=== PATIENT | female | born 1995 | race Caucasian/White ===

== ENCOUNTER 2017-01-05 03:43 | Observation (INO) | payer BC, OTHER ==
[2017-01-05] MEDS ORDERED: MAG HYDROX/AL HYDROX/SIMETH 30 ML CUP ONE (04:44)
[2017-01-05] MEDS ORDERED: LIDOCAINE VISCOUS 300 MG/15 ML CUP ONE (04:44)
[2017-01-05] MEDS ORDERED: ONDANSETRON 4 MG/2 ML VIAL ONE (04:44)
[2017-01-05] MEDS ORDERED: FAMOTIDINE 20 MG/2 ML VIAL ONE (04:44)
[2017-01-05 07:27] LABS: Basophils % (A) 0 %; CH 30.6; CHCM 33.5; Eosinophils # (A) 0.1 k/uL (0-0.7); Eosinophils % (A) 1 %; HCT 41.1 % (34.0-46.0); HDW 2.51; HGB 13.7 gm/dL (11.4-16.0); Luc # (Auto) 0.05; Luc % (Auto) 0; Lymphocytes # (A) 0.9 k/uL (1.0-4.8); Lymphocytes % (A) 6 %; MCH 30.5 pg (25.0-35.0); MCHC 33.3 g/dL (31.0-37.0); MCV 91.5 fL (80.0-100.0); Mean Platelet Volume 6.5; Monocytes # (A) 0.3 k/uL (0-1.0); Monocytes % (A) 2 %; Neutrophils # (A) 13.6 k/uL (1.3-7.7); Neutrophils % (A) 91 %; RBC 4.49 m/uL (3.80-5.40); RDW 12.9 % (11.5-15.5); WBC 14.9 k/uL (3.8-10.6); WBC (Perox) 15.05
[2017-01-05 07:32] LABS: Appearance,Urine Clear (Clear); Bilirubin,Urine Negative (Negative); Calcium Oxalate Crystals,Urine Occasional /hpf; Glucose,Urine (UA) 2+ (Negative); Ketones,Urine Negative (Negative); Leukocyte Esterase,Urine Negative (Negative); Mucus,Urine Many /hpf; Nitrite,Urine Negative (Negative); Particle Count 11837; Protein,Urine 1+ (Negative); RBC,Urine 2 /hpf (0-5); Specific Gravity,Urine 1.006 (1.001-1.035); Squamous Epithelial Cell,Urine 2 /hpf (0-4); UA Billing (MACRO vs. MICRO) MICRO; Urobilinogen,Urine <2.0 mg/dL (<2.0); WBC,Urine 8 /hpf (0-5)
[2017-01-05 07:38] LABS: ALT 26 U/L (9-52); AST 28 U/L (14-36); Alkaline Phosphatase 80 U/L (38-126); Amylase 79 U/L (30-110); Anion Gap 13 mmol/L; Blood Urea Nitrogen 7 mg/dL (7-17); Calcium 9.8 mg/dL (8.4-10.2); Carbon Dioxide 25 mmol/L (22-30); Chloride 104 mmol/L (98-107); Glucose 95 mg/dL (74-99); Non-African American GFR(MDRD) >60 (>60 ml/min/1.73 sqM); Potassium 3.8 mmol/L (3.5-5.1); Sodium 142 mmol/L (137-145); Total Bilirubin 0.4 mg/dL (0.2-1.3); Total Protein 7.8 g/dL (6.3-8.2)
--- NOTE | 2017-01-05 07:53 | XR ---
EXAMINATION TYPE: XR chest 2V DATE OF EXAM: 01/05/2017 7:07 AM COMPARISON: 09/08/2004 INDICATION: Cough TECHNIQUE: Chest is examined in the frontal and lateral projections. FINDINGS: The heart size is normal. The pulmonary vasculature is normal. The lungs are clear. IMPRESSION: 1. No acute pulmonary process.
[2017-01-05] MEDS ORDERED: [UNRECOGNIZED DRUG - OTHER] PO ONE ×2 (08:00)
[2017-01-05] MEDS ORDERED: MAG HYDROX PO ONE ×2 (08:00)
[2017-01-05] MEDS ORDERED: AL HYDROX PO ONE ×2 (08:00)
[2017-01-05] MEDS ORDERED: MORPHINE SULFATE 4 MG/ML SYRINGE IV ONE (08:00)
[2017-01-05] MEDS ORDERED: FAMOTIDINE 20 MG/2 ML VIAL IV ONE (08:00)
[2017-01-05] MEDS ORDERED: ONDANSETRON 4 MG/2 ML VIAL IVP ONE (08:00)
[2017-01-05] MEDS ORDERED: ONDANSETRON 4 MG/2 ML VIAL IVP PRN (10:04)
[2017-01-05] MEDS ORDERED: RX INFO: IV CONTRAST WAS GIVEN 1 EACH MISC MISCELLANE PRN (10:13)
[2017-01-05] MEDS: IOHEXOL 350 MG/ML 25 ML BOTTLE (ORAL USE) PO PRN ×2 (10:46→11:39)
--- NOTE | 2017-01-05 10:58 | US ---
EXAMINATION TYPE: US abdomen limited DATE OF EXAM: 01/05/2017 7:13 AM COMPARISON: CLINICAL HISTORY: Abdominal pain. RUQ pain EXAM MEASUREMENTS: Liver Length: 15.8 cm Gallbladder Wall: 0.2 cm CBD: 0.5 cm Right Kidney: 10.7 x 3.4 x 3.9 cm Pancreas: Head and body are normal. Tail is obscured by bowel gas. Liver: wnl Gallbladder: wnl CBD: wnl Right Kidney: wnl No abnormality visualized within RUQ IMPRESSION: 1. Normal right upper quadrant ultrasound.
--- NOTE | 2017-01-05 12:31 | CT ---
EXAMINATION TYPE: CT abdomen pelvis w con DATE OF EXAM: 01/05/2017 12:26 PM COMPARISON: NONE HISTORY: RLQ pain CT DLP: 451.00 mGycm CONTRAST: CT scan of the abdomen and pelvis is performed with Oral Contrast and with IV Contrast, patient injec agus with 100 ml mL of Omnipaque 300. FINDINGS: LUNG BASES-: No visible nodule. No infiltrate. LIVER/GB: No calcified gallstones. No space occupying hepatic lesion. Biliary tree is of normal ca liber. PANCREAS: No inflammation. No distinct mass. SPLEEN: No splenic enlargement. No lesion seen. ADRENALS: No nodule. No thickening. KIDNEYS/BLADDER: No hydronephrosis. No nephrolithiasis. No disctinct renal mass. Urinary bladder g rossly unremarkable. BOWEL: Normal appendix. Normal bowel caliber. No inflammation. GENITAL ORGANS: No gross abnormality. LYMPH NODES: No greater than 1cm abdominal or pelvic lymph nodes are appreciated. AORTA: No significant abnormality. OSSEOUS STRUCTURES: No significant abnormality is seen. OTHER: No significant additional abnormality is seen. IMPRESSION: 1. No acute process seen. Normal appendix.
--- NOTE | 2017-01-05 13:35 | P.HPIM ---
History of Present Illness H&P Date: 01/05/17 Chief Complaint: Abdominal pain. This is a 21-year-old female with no previous medical history who was brought into the emergency department at [facility] yesterday because of abdominal pain located in the admitted abdominal area associated with the nausea and episode of vomiting that any fever or chills patient stated that she had an episode of upper respiratory tract infection that was few days back and she went to [facility] the patient on Mucinex 600 mg orally twice every day patient has been coughing with some clear phlegm without any evidence of any fever or chills at that time. The patient woke up at around 3:00 in the morning septic complaining of severe abdominal pain located in the mid abdomen and radiating to the epigastric area and subsequently located in the right upper quadrant and right lower quadrant patient ended up coming to the ER she was given IV fluid as well as Zofran and she was given morphine, patient had an ultrasound of the gallbladder that was negative for cholelithiasis she had an abdominal x-ray that was negative, patient was admitted to the hospital for evaluation she was placed on Pepcid 20 mg IV push every 12 hours along with IV fluid and Zofran patient is feeling a bit better now however she has severe tenderness in the right lower quadrant for which she underwent computed tomography scan of the abdomen and pelvis with contrast that was negative for appendicitis. General surgery consultation was obtained from Dr. Mtz. Review of Systems Constitutional: Denies chills, Denies chronic headaches, Denies lethargy, Denies malaise, Denies weakness, Denies weight gain, Denies weight loss Eyes: denies blurred vision, denies bulging eye, denies decreased vision Ears, nose, mouth and throat: Denies dental pain, Denies neck lump, Denies swelling in throat, Denies sore throat Cardiovascular: Denies chest pain, Denies decreased exercise tolerance, Denies dyspnea on exertion, Denies edema, Denies phlebitis, Denies rapid heart beat, Denies shortness of breath, Denies syncope Respiratory: Reports congestion, Reports cough, Reports cough with sputum, Denies dyspnea, Denies home oxygen, Denies pain, Denies pain on inspiration, Denies sleep apnea, Denies snoring, Denies wheezing Gastrointestinal: Reports abdominal pain, Reports dyspepsia, Reports heartburn, Reports nausea, Reports vomiting, Denies belching, Denies bloating, Denies BRBPR , Denies change in bowel habits, Denies coffee ground emesis, Denies constipation, Denies diarrhea, Denies early satiety, Denies excessive gas, Denies hematemesis, Denies hematochezia, Denies indigestion, Denies jaundice, Denies lactose intolerance, Denies loss of appetite, Denies melena Genitourinary: Denies dysuria, Denies hematuria Musculoskeletal: Denies myalgias Musculoskeletal: absent: ankle pain, ankle stiffness, ankle swelling, elbow pain , elbow stiffness, elbow swelling, foot pain, foot stiffness, foot swelling, hand pain, hand stiffness, hand swelling, hip pain, hip stiffness, hip swelling , knee pain, knee stiffness, knee swelling, shoulder pain, shoulder stiffness, shoulder swelling, wrist pain, wrist stiffness, wrist swelling Integumentary: Denies pruritus, Denies rash Neurological: Denies numbness, Denies weakness Psychiatric: Denies anxiety, Denies depression Endocrine: Denies fatigue, Denies weight change Past Medical History Past Medical History: No Reported History History of Any Multi-Drug Resistant Organisms: None Reported Past Surgical History: No Surgical Hx Reported Past Psychological History: No Psychological Hx Reported Smoking Status: Never smoker Past Alcohol Use History: None Reported Past Drug Use History: None Reported - Past Family History Mother Family Medical History: Hypertension (Mother is 59-year-old history of hypertension.) Father Family Medical History: No Reported History (Father is 66-year-old no major medical problems he has some stomach issues.) Additional Family Medical History / Comment(s): CHRONIC ABDOMINAL PAIN ISSUES...UNRESOLVED. Medications and Allergies Home Medications Medication Instructions Recorded Confirmed Type guaiFENesin [Mucinex] 1,200 mg PO Q12H PRN 01/05/17 01/05/17 History Allergies Allergy/AdvReac Type Severity Reaction Status Date / Time Penicillins Allergy Rash/Hives Verified 01/05/17 07:49 Physical Exam Vitals: Vital Signs Temp Pulse Resp BP Pulse Ox 01/05/17 08:54 98.8 F 71 16 126/67 96 Intake and Output 01/04/17 01/05/17 01/05/17 22:59 06:59 14:59 Intake Total 600 Balance 600 Intake: Oral 600 Other: Voiding Method Toilet # Voids 1 Weight 61.7 kg Patient Weight 01/06/17 06:59 Weight 61.7 kg - Constitutional General appearance: no acute distress, thin - EENT Eyes: EOMI, PERRLA, no ptosis, no scleral icterus, normal appearance ENT: hard of hearing, NA/AT, normal oropharynx, no thrush Ears: bilateral: normal - Neck Neck: no lymphadenopathy, normal ROM, no rigidity, no stridor, no thyromegaly Carotids: bilateral: upstroke normal Thyroid: bilateral: normal size - Respiratory Respiratory: bilateral: CTA, negative: diminished, dullness, rales, rhonchi, wheezing, prolonged expiration, prolonged inspiration - Cardiovascular Rhythm: regular Heart sounds: normal: S1, S2 Abnormal Heart Sounds: no systolic murmur, no diastolic murmur, no rub, no S3 Gallop, no S4 Gallop, no click - Gastrointestinal General gastrointestinal: normal bowel sounds, tenderness (Mid epigastric area as well as the right lower quadrant.) - Integumentary Integumentary: normal, normal turgor - Neurologic Neurologic: CNII-XII intact - Musculoskeletal Musculoskeletal: gait normal, strength equal bilaterally - Psychiatric Psychiatric: A&O x's 3, appropriate affect, intact judgment & insight Results CBC & Chem 7: 01/05/17 04:30 01/05/17 04:30 Labs: Abnormal Lab Results - Last 24 Hours (Table) 01/05/17 01/05/17 Range/Units 04:30 04:30 WBC 14.9 H (3.8-10.6) k/uL Neutrophils # 13.6 H (1.3-7.7) k/uL Lymphocytes # 0.9 L (1.0-4.8) k/uL Urine Protein 1+ H (Negative) Urine Glucose (UA) 2+ H (Negative) Urine WBC 8 H (0-5) /hpf Calcium Oxalate Crystal Occasional H (None) /hpf Urine Mucus Many H (None) /hpf Thrombosis Risk Factor Assmnt - DVT/VTE Prophylaxis DVT/VTE Prophylaxis: Low risk, early ambulation encouraged - Choose All That Apply Any of the Below Risk Factors Present?: Yes Other Risk Factors: No Other congenital or acquired thrombophilia - If yes, enter type in comment: Yes Assessment and Plan Plan: Assessment and plan: 1. Abdominal pain in the mid epigastric area as well as right lower quadrant. Post computed tomography scan of the abdomen and pelvis with contrast that was negative for appendicitis, patient would be started on Pepcid 20 mg IV push every 12 hours, IV fluid resuscitation, continue Zofran 4 mg IV push every 24 hours, general surgery consultation from Dr. Mtz, patient will be observed overnight repeat CBC tomorrow morning if her numbers are normal she can go home tomorrow morning, we will check fibrinogen level to rule out any Mediterranean fever. 2. Recent upper respiratory tract infection. Resolved. 3. ALLERGIC rhinitis. Patient will be started on loratadine 10 mg orally once every day. 4. DVT prophylaxis. Encourage early ambulation. 5. GI prophylaxis. Continue Pepcid. 6. Patient is full code. 7. Admitted as an inpatient, estimate length of stay 2 midnights. 8. Home in a.m.
--- NOTE | 2017-01-05 17:44 | P.CON ---
Consult Note - . Consult date: 01/05/17 Assessment/Plan:: Thank you very much for asking me to see the this young lady. She is a very pleasant 21-year-old white female who developed severe abdominal pain last day or so worse the night. Associated with nausea and wanted to episodes of vomiting. In initially was mid abdomen and epigastric area and then right upper quadrant and now appears to be more diffuse in nature. The vomiting and nausea has improved. She is quite hungry right now. Last bowel movement was the tumor that was normal. No diarrhea. She had an episode of upper abdominal pain about the 4 years ago. Workup including EGD at that time was unremarkable. She had a computed tomography scan of the abdomen and pelvis and ultrasound that were essentially negative. Chest x-ray was normal. She has had a cough for a week now mostly producing clear phlegm. She Went to the walk-in clinic was given Mucinex to take daily. She did have a fever due to ago and was given Motrin. No chills. He needs to have a cough and some congestion. Past history as above. Otherwise fairly healthy. ALLERGIES ALLERGIES penicillin Social history negative. Family history. Negative for gallbladder disease. Father above has upper abdominal symptoms for which he takes PPIs. Systems review. As above. Persistent cough. No urinary symptoms. No vaginal discharge or bleeding. On examination the patient is well-built well-nourished in no acute distress at this time. Not the overweight with a BMI of 23.3. 3. Temperature is normal vitals are normal. Hydration satisfactory. Abdomen is quite soft with mild diffuse tenderness nothing localizing at this time. No guarding or rebound. No mass or organomegaly. No hernias noted. CARGO TRIMMER grossly intact. She is fully awake alert and oriented and cheerful. WBCs elevated at 14,200. Remainder of her lab work is unremarkable. X-rays as above. Impression diffuse nonspecific abdominal discomfort. No evidence of gallbladder disease or appendicitis. Suspect she may have spastic bowel syndrome. Possible abdominal wall pain secondary to the prolonged coughing. Leukocytosis may be secondary to her bronchitis . Recommendation. We will start on a clear liquid diet the. Mild analgesics such as Toradol. Progressively advance the diet if tolerated. Antibiotics. Dr. Stein. We will be glad to follow her along with you.
[2017-01-05] MEDS: SODIUM CHLORIDE 0.9% 1,000 ML IV SCH (18:36)
[2017-01-05] MEDS: FAMOTIDINE 20 MG/2 ML VIAL IV SCH (20:57)
[2017-01-05] MEDS: KETOROLAC 30 MG/ML 1 ML VIAL IVP PRN (21:03)
[2017-01-06] MEDS: SODIUM CHLORIDE 0.9% 1,000 ML IV SCH ×3 (01:54→13:30)
[2017-01-06 07:42] LABS: Basophils % (A) 0 %; CH 30.4; CHCM 32.8; Eosinophils # (A) 0.2 k/uL (0-0.7); Eosinophils % (A) 5 %; HCT 34.7 % (34.0-46.0); HDW 2.57; HGB 11.5 gm/dL (11.4-16.0); Luc % (Auto) 2; Lymphocytes % (A) 40 %; MCH 30.8 pg (25.0-35.0); MCV 93.3 fL (80.0-100.0); Mean Platelet Volume 6.5; Monocytes # (A) 0.4 k/uL (0-1.0); Monocytes % (A) 8 %; Neutrophils # (A) 2.3 k/uL (1.3-7.7); Neutrophils % (A) 45 %; RBC 3.72 m/uL (3.80-5.40); RDW 12.8 % (11.5-15.5); WBC (Perox) 4.65
--- NOTE | 2017-01-06 08:32 | P.PN ---
Progress Note - Text The patient is doing better today in terms of abdominal pain. She tolerated a clear liquids well last night and this morning. No nausea or vomiting. Did have some diarrhea. His to cough which appears to be a main problem. Examination the patient is awake alert cheerful in no distress. Temperature is normal. Vitals are normal. Abdomen is quite soft with mild diffuse tenderness but no guarding or rebound or rigidity no mass or organomegaly noted. WBC is normal. Impression. Improving abdominal pain and discomfort. May have a viral syndrome. No evidence of the significant intra-abdominal pathology. Recommend. Advance his diet to soft diet. Continued medical management.
[2017-01-06] MEDS: FAMOTIDINE 20 MG/2 ML VIAL IV SCH (08:41)
[2017-01-06] MEDS: KETOROLAC 30 MG/ML 1 ML VIAL IVP PRN ×2 (08:46→15:14)
[2017-01-06] MEDS ORDERED: LORATADINE 10 MG TAB PO SCH (14:00)
[2017-01-06 15:58] VITALS: BP 123/66; PULSE 68; RESP 19; TEMP 97.9
--- NOTE | 2017-01-06 16:07 | P.DS ---
Providers Date of admission: 01/05/17 08:03 Expected date of discharge: 01/06/17 Attending physician: Home Stein Consults: 01/05/17 12:55 Consult Physician Routine Consulting Provider: Primitivo Mtz Consult Reason/Comments: abdominal pain Do you want consulting provider notified?: Yes Primary care physician: Home Stein [facility] Course: This is a 21-year-old female with no previous medical history who was brought into the emergency department at [facility] yesterday because of abdominal pain located in the admitted abdominal area associated with the nausea and episode of vomiting that any fever or chills patient stated that she had an episode of upper respiratory tract infection that was few days back and she went to [facility] the patient on Mucinex 600 mg orally twice every day patient has been coughing with some clear phlegm without any evidence of any fever or chills at that time. The patient woke up at around 3:00 in the morning septic complaining of severe abdominal pain located in the mid abdomen and radiating to the epigastric area and subsequently located in the right upper quadrant and right lower quadrant patient ended up coming to the ER she was given IV fluid as well as Zofran and she was given morphine, patient had an ultrasound of the gallbladder that was negative for cholelithiasis she had an abdominal x-ray that was negative, patient was admitted to the hospital for evaluation she was placed on Pepcid 20 mg IV push every 12 hours along with IV fluid and Zofran patient is feeling a bit better now however she has severe tenderness in the right lower quadrant for which she underwent computed tomography scan of the abdomen and pelvis with contrast that was negative for appendicitis. General surgery consultation was obtained from Dr. Mtz. 01/06: Repeat WBC 5.0. Patient has been seen and followed by Dr. Mtz for abdominal pain thought to be viral syndrome. Patient has been instructed to take Protonix twice daily as well as Claritin for home. Patient will be discharged home today in stable condition. Discharge diagnoses: 1. Abdominal pain in the mid epigastric area as well as right lower quadrant due to viral syndrome 2. Recent upper respiratory tract infection. Resolved. 3. ALLERGIC rhinitis. Discharge plan: Return home Impression and plan of care have been directed as dictated by the signing physician. Karie Moreno nurse practitioner acting as scribe for signing physician. Patient Condition at Discharge: Good Plan - Discharge Summary New Discharge Prescriptions: Cetirizine HCl [Zyrtec] 10 mg PO DAILY #30 tab Ondansetron [Zofran] 4 mg PO Q6H PRN #20 tab PRN Reason: Nausea Pantoprazole Sodium [Protonix] 40 mg PO DAILY #30 tablet. Discharge Medication List Cetirizine HCl [Zyrtec] 10 mg PO DAILY #30 tab 01/06/17 [Rx] Ondansetron [Zofran] 4 mg PO Q6H PRN #20 tab 01/06/17 [Rx] Pantoprazole Sodium [Protonix] 40 mg PO DAILY #30 tablet. 01/06/17 [Rx] Follow up Appointment(s)/Referral(s): Home Stein MD [Primary Care Provider] - 1 Week Activity/Diet/Wound Care/Special Instructions: Soft diet, drink fluids Last received claritan ( zyrtec) at 3PM Last received zofran at 1pm Discharge Disposition: HOME SELF-CARE
[2017-01-06] MEDS ORDERED: FAMOTIDINE 20 MG TAB PO SCH (21:00)
== END 2017-01-06 18:45 | disposition home or self-care (01) ==
LOC: EC 03:43 → 6PED 08:03
PROVIDERS: ADMIT Internal Medicine; ATTEND Internal Medicine
DX: R10.31 Right lower quadrant pain (principal); R10.13 Epigastric pain; R10.11 Right upper quadrant pain; R05 Cough; R11.2 Nausea with vomiting, unspecified; R19.7 Diarrhea, unspecified; D72.829 Elevated white blood cell count, unspecified; J40 Bronchitis, not specified as acute or chronic; J30.9 Allergic rhinitis, unspecified; Z88.0 Allergy status to penicillin; Z82.49 Family history of ischemic heart disease and other diseases of the circulatory system
CPT/HCPCS: 96361; 96375 ×2; 96376 ×2; 96372; 96374; 99285; 36415; 93005; 80053; 82150; 83690; 85025 ×2; 81001; 81025; 71020; 76705; 74177; G0378 ×2; J2405 ×2; J1885 ×2; Q9967

== ENCOUNTER → 2017-01-20 | Outpatient (CLI) | payer BC, OTHER ==
[2017-01-20 11:10] LABS: Cholesterol 154 mg/dL (<200); Glucose 84 mg/dL (74-99); HDL Cholesterol 63 mg/dL (40-60); Triglycerides 69 mg/dL (<150)
[2017-01-20 11:16] LABS: Rheumatoid Factor, Qnt <9 IU/mL (<12)
[2017-01-21 13:47] LABS: Gliadin AB IgA, Deaminated 5 UNITS (<20); Gliadin AB IgG, Deaminated 2 UNITS (<20)
[2017-01-22 14:09] LABS: Gastrin 18 pg/mL (13 - 115)
== END ==
LOC: LABWHC1 08:37
PROVIDERS: ATTEND Obstetrics & Gynecology
DX: K58.0 Irritable bowel syndrome with diarrhea (principal); Z13.29 Encounter for screening for other suspected endocrine disorder; Z13.1 Encounter for screening for diabetes mellitus; Z13.220 Encounter for screening for lipoid disorders
CPT/HCPCS: 36415; 80061; 82941; 82947; 83516; 84439; 84443; 86038; 86431

== ENCOUNTER → 2017-01-28 | Outpatient (CLI) | payer BC, OTHER ==
--- NOTE | 2017-01-28 09:30 | NM ---
EXAMINATION TYPE: NM hepatobiliary w EF DATE OF EXAM: 01/28/2017 COMPARISON: Nuclear medicine HIDA scan January 27, 2013. HISTORY: Other unspecified disorder gallbladder per order. Epigastric pain with nausea per patient. TECHNIQUE: After the intravenous administration of 5.23 mCi Tc 99m Mebrofenin hepatobiliary scintigra phy is performed. Immediate images post injection. FINDINGS: There is satisfactory initial accumulation of tracer by the liver. The gallbladder is visualized wit hin 20 minutes. The small bowel activity is noted within 35 minutes. At one hour 8 ounces of oral e nsure plus is given to mimic CCK and gallbladder ejection fraction is calculated at 69 %, in the norm al range. Therefore there is no scintigraphic evidence of cystic or common bile duct obstruction to suggest acute cholecystitis or gallbladder dyskinesia. IMPRESSION: Exam is within normal limits.
== END | disposition home or self-care (01) ==
LOC: RADNMMAIN 07:00
PROVIDERS: ATTEND Internal Medicine
DX: K82.8 Other specified diseases of gallbladder (principal)
CPT/HCPCS: 78226; A9537

== ENCOUNTER 2017-03-17 10:10 | Day surgery (SDC) | payer BC, OTHER ==
[2017-03-11 11:41] VITALS: BMI 24.7
[~2017-03-17 10:10] MED LIST: LACTATED RINGERS 1,000 ML IV SCH; LIDOCAINE 1% 20 ML VIAL (10MG/ML) FOR IV START INTRADERMA PRN
[2017-03-17 11:15] VITALS: TEMP 98.2
[2017-03-17] MEDS ORDERED: MIDAZOLAM 2 MG/2 ML VIAL IV ONE (11:34)
[2017-03-17] MEDS ORDERED: PROPOFOL 10 MG/ML 20 ML VIAL IV ONE (11:37)
--- NOTE | 2017-03-17 12:07 | P.PCN ---
Date of Procedure: 03/17/17 Preoperative Diagnosis: Postoperative Diagnosis: Procedure(s) Performed: [facility] HISTORY: Patient is a 21-year-old, pleasant, white female, scheduled for an upper endoscopy as a part of evaluation of persistent epigastric pain, heartburn for the last 4 months duration. She has been on Protonix 40 mg daily for 2 months with no relief and recently was started on Nexium 40 mg daily and still remains symptomatic.. PROCEDURE PERFORMED: Esophagogastroduodenoscopy with biopsy. PREOPERATIVE DIAGNOSIS: Epigastric pain of 4 months duration. IV sedation per anesthesia. PROCEDURE: After informed consent was obtained, the patient was brought into the endoscopy unit. IV sedation was administered by Anesthesia under continuous monitoring. Initially the Olympus GIF-140 video endoscope was inserted into the mouth. Esophagus intubated without any difficulty. It was gradually advanced into the stomach and duodenum and carefully examined. The bulb and the second part of the duodenum appeared normal. Biopsies were done from this area to rule out celiac disease. The scope at this time was withdrawn to the stomach, adequately insufflated with air, and upon careful examination, mucosa of the antrum had mild gastritis and biopsies were done from this area. The, body, cardia and the fundus appeared normal. The scope was then withdrawn into the esophagus. The GE junction was located at 39 cm from the incisors. The esophagus appeared normal. There were no erosions or ulcerations seen and the patient tolerated the procedure well. IMPRESSION: 1. Mild antral gastritis. 2. Small hiatal hernia but no evidence of esophagitis or peptic ulcer disease. RECOMMENDATIONS: The findings of this examination were discussed with the patient family. She was advised to follow with the biopsy results. She will continue with Nexium 40 mg daily and follow anti-reflux measures. Implants: Indications for Procedure: Operative Findings: Description of Procedure:
[2017-03-17 13:02] VITALS: BP 119/68; PULSE 68; RESP 18
[2017-03-17] MEDS ORDERED: MAG HYDROX/AL HYDROX/SIMETH 30 ML CUP PO STA (13:31)
== END 2017-03-17 14:00 | disposition home or self-care (01) ==
LOC: ORWHC2ENDO 10:10
PROVIDERS: ATTEND Internal Medicine Gastroenterology
DX: K29.50 Unspecified chronic gastritis without bleeding (principal); K21.0 Gastro-esophageal reflux disease with esophagitis; K44.9 Diaphragmatic hernia without obstruction or gangrene; J45.909 Unspecified asthma, uncomplicated; E07.9 Disorder of thyroid, unspecified; Z79.899 Other long term (current) drug therapy; Z88.0 Allergy status to penicillin
CPT/HCPCS: 81025; 88305; 88342; 43239; J2250; J2704

== ENCOUNTER → 2018-02-14 | Outpatient (CLI) | payer BC | END | disposition home or self-care (01) | LOC: LABWHC1 16:42 | PROVIDERS: ATTEND Otolaryngology | DX: J30.89 Other allergic rhinitis (principal) | CPT/HCPCS: 36415; 86001 ==

== ENCOUNTER 2018-03-03 13:46 | Emergency (ER) | payer BC, OTHER ==
[2018-03-03 14:30] VITALS: BP 111/68; PULSE 69; RESP 18; TEMP 98.3
[2018-03-03] MEDS ORDERED: PROPARACAINE 0.5% OPHTH DROPS 15 ML BTL ONE (14:39)
[2018-03-03] MEDS ORDERED: TOBRAMYCIN 0.3% OPHTH DROPS 5 ML BTL LEFT EYE STA (14:52)
--- NOTE | 2018-03-03 14:52 | ED ---
General Adult HPI - General Chief complaint: Eye Problems Stated complaint: [employer]-eye scratched at work Time Seen by Provider: 03/03/18 13:46 Source: patient, RN notes reviewed Mode of arrival: ambulatory Limitations: no limitations - History of Present Illness Initial comments: This is a 22-year-old female presents emergency Department complaining that she scratched her eye with a bag. Patient states she has had no visual disturbance. Patient states there is no chance of any foreign body in the eye. Patient states it feels like it's down by her eyelid almost. Patient denies any drainage. Patient states her tetanus shot recently. - Related Data Home Medications Medication Instructions Recorded Confirmed Levothyroxine Sodium 25 mcg PO DAILY 03/11/17 03/03/18 Cyanocobalamin (Vitamin B-12) 2,500 mcg PO DAILY 03/03/18 03/03/18 [Vitamin B12] Multivitamin,Therapeutic [Thera] 1 tab PO DAILY 03/03/18 03/03/18 Norgestimate-Ethinyl Estradiol 1 tab PO DAILY 03/03/18 03/03/18 [Jhp-Bi-Iehopozl Tablet] Allergies Allergy/AdvReac Type Severity Reaction Status Date / Time Penicillins Allergy Rash/Hives Verified 03/03/18 14:42 Review of Systems ROS Statement: Those systems with pertinent positive or pertinent negative responses have been documented in the HPI. ROS Other: All systems not noted in ROS Statement are negative. Past Medical History Past Medical History: Asthma Additional Past Medical History / Comment(s): upper abdominal pain History of Any Multi-Drug Resistant Organisms: None Reported Past Surgical History: Bladder Surgery Past Anesthesia/Blood Transfusion Reactions: No Reported Reaction Past Psychological History: No Psychological Hx Reported Smoking Status: Never smoker Past Alcohol Use History: Occasional Past Drug Use History: None Reported - Past Family History Mother Family Medical History: Hypertension Father Family Medical History: No Reported History Additional Family Medical History / Comment(s): CHRONIC ABDOMINAL PAIN ISSUES...UNRESOLVED. General Exam - General Exam Comments Initial Comments: GENERAL Patient is well-developed and well-nourished. Patient is in mild distress. EYES Patient's pupils are equal and round. Extraocular motion is intact. I used a Ann lamp with fluorescein and proparacaine to evaluate the patient's eye there was no obvious corneal abrasion however there was some irritation to the conjunctiva. That area is was where the patient was complaining of pain. SKIN Unremarkable NEURO The patient is alert and oriented 3 PYSCH Patient has normal interpersonal interactions. MUSCULOSKELETAL All 4 times and full range of motion Limitations: no limitations Course Vital Signs 03/03/18 14:28 Temperature 98.3 F Pulse Rate 69 Respiratory 18 Rate Blood Pressure 111/68 O2 Sat by Pulse 100 Oximetry Disposition Clinical Impression: Conjunctival abrasion Disposition: HOME SELF-CARE Condition: Good Instructions: Abrasion (ED) Additional Instructions: Use tobramycin eyedrops 4 times a day Is patient prescribed a controlled substance at d/c from ED?: No Referrals: Home Stein MD [Primary Care Provider] - 1-2 days Time of Disposition: 14:52
[2018-03-03] MEDS ORDERED: PROPARACAINE 0.5% OPHTH DROPS 15 ML BTL LEFT EYE STA (14:54)
== END 2018-03-03 15:11 | disposition home or self-care (01) ==
LOC: EC 13:46
DX: S05.02XA Injury of conjunctiva and corneal abrasion without foreign body, left eye, initial encounter (principal); Z79.3 Long term (current) use of hormonal contraceptives; Z79.899 Other long term (current) drug therapy; Z88.0 Allergy status to penicillin; W22.8XXA Striking against or struck by other objects, initial encounter; Y92.69 Other specified industrial and construction area as the place of occurrence of the external cause; Y99.0 Civilian activity done for income or pay
CPT/HCPCS: 99282

== ENCOUNTER 2018-10-05 17:26 | Emergency (ER) | payer OTHER, BC ==
[2018-10-05 17:31] VITALS: RESP 18
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
[2018-10-05] MEDS ORDERED: KETOROLAC 30 MG/ML 1 ML VIAL IVP STA (19:59)
[2018-10-05] MEDS ORDERED: METOCLOPRAMIDE 5 MG/ML 2 ML VIAL IVP STA (19:59)
[2018-10-05] MEDS ORDERED: diphenhydrAMINE 50 MG/ML 1 ML VIAL IVP STA (19:59)
[2018-10-05] MEDS ORDERED: SODIUM CHLORIDE 0.9% 500 ML 500 ML IV STA (20:00)
[2018-10-05 21:12] VITALS: BP 116/59; PULSE 71; TEMP 97.5
== END 2018-10-05 21:13 | disposition home or self-care (01) ==
LOC: EC 17:26
DX: S09.90XA Unspecified injury of head, initial encounter (principal); S29.002A Unspecified injury of muscle and tendon of back wall of thorax, initial encounter; Z79.890 Hormone replacement therapy; Z79.3 Long term (current) use of hormonal contraceptives; Z88.0 Allergy status to penicillin; Z91.011 Allergy to milk products; V48.5XXA Car driver injured in noncollision transport accident in traffic accident, initial encounter; Y92.411 Interstate highway as the place of occurrence of the external cause; Z53.8 Procedure and treatment not carried out for other reasons
CPT/HCPCS: 72125; 70450; 99284; 96374; 96375 ×2; 96361; J1200; J2765; J1885

== ENCOUNTER 2018-10-20 22:08 | Emergency (ER) | payer OTHER, BC ==
[2018-10-20] MEDS: DEXAMETHASONE SOD PHOSPHATE 10 MG/ML 1 ML VIAL IM STA (23:23)
[2018-10-20] MEDS: IPRATROPIUM-ALBUTEROL 3 ML NEB INHALATION STA (23:39)
[2018-10-20] MEDS: ALBUTEROL NEBULIZED 2.5 MG/3 ML INHALATION STA (23:39)
[2018-10-20 23:56] VITALS: RESP 16
--- NOTE | 2018-10-20 23:58 | ED ---
General Adult HPI - General Chief complaint: Upper Respiratory Infection Stated complaint: Cough, SOB Time Seen by Provider: 10/20/18 23:01 Source: patient, RN notes reviewed, old records reviewed Mode of arrival: ambulatory Limitations: no limitations - History of Present Illness Initial comments: 23-year-old female presents with 2 weeks of cough and dyspnea. Patient has remote history of asthma although she is not require treatment for her asthma in many years. Cough is dry and nonproductive. She's had several coughing spells, yesterday developed severe coughing spell resulting in 2 episodes of vomiting. Patient has otherwise felt well, no URI symptoms. She does report some mild chest tightness associated with her cough. No diarrhea. No known sick contacts. - Related Data Home Medications Medication Instructions Recorded Confirmed Levothyroxine Sodium 25 mcg PO DAILY 03/11/17 10/20/18 Norgestimate-Ethinyl Estradiol 1 tab PO DAILY 03/03/18 10/20/18 [Mfm-Ew-Khswpfzi Tablet] Albuterol Inhaler [Ventolin Hfa 1 - 2 puff INHALATION RT-Q6H PRN 10/20/18 Inhaler] Dextromethorphan Polistirex 30 mg PO Q12H PRN 10/20/18 10/20/18 [Delsym] Fluticasone Nasal [place] [Flonase 2 spr EA NOSTRIL BID PRN 10/20/18 10/20/18 Nasal [place]] Previous Rx's Medication Instructions Recorded Albuterol Inhaler [Ventolin Hfa 1 - 2 puff INHALATION Q4HR PRN #1 10/21/18 Inhaler] inhaler Azithromycin [Zithromax Z-pack] 0 mg PO DIRECTED #6 tab 10/21/18 predniSONE 50 mg PO DAILY #5 tab 10/21/18 Allergies Allergy/AdvReac Type Severity Reaction Status Date / Time Penicillins Allergy Rash/Hives Verified 10/20/18 23:15 Milk Containing Products AdvReac Abdominal Verified 10/20/18 23:15 [Dairy] Pain Review of Systems ROS Statement: Those systems with pertinent positive or pertinent negative responses have been documented in the HPI. ROS Other: All systems not noted in ROS Statement are negative. Past Medical History Past Medical History: Asthma Additional Past Medical History / Comment(s): upper abdominal pain History of Any Multi-Drug Resistant Organisms: None Reported Past Surgical History: Bladder Surgery Past Anesthesia/Blood Transfusion Reactions: No Reported Reaction Past Psychological History: No Psychological Hx Reported Smoking Status: Never smoker Past Alcohol Use History: Occasional Past Drug Use History: None Reported - Past Family History Mother Family Medical History: Hypertension Father Family Medical History: No Reported History Additional Family Medical History / Comment(s): CHRONIC ABDOMINAL PAIN ISSUES...UNRESOLVED. General Exam Limitations: no limitations General appearance: alert, in no apparent distress Head exam: Present: atraumatic, normocephalic Eye exam: Present: normal appearance, PERRL, EOMI ENT exam: Present: normal exam Neck exam: Present: normal inspection. Absent: tenderness, meningismus Respiratory exam: Present: other (Good air entry with significant bronchospastic cough). Absent: respiratory distress, wheezes Cardiovascular Exam: Present: regular rate, normal rhythm GI/Abdominal exam: Present: soft. Absent: distended, tenderness Rectal exam: Present: deferred Extremities exam: Present: normal inspection, normal capillary refill. Absent: pedal edema, calf tenderness Neurological exam: Present: alert, oriented X3, CN II-XII intact. Absent: motor sensory deficit Psychiatric exam: Present: normal affect, normal mood Skin exam: Present: warm, dry, intact. Absent: cyanosis, diaphoretic Course Vital Signs 10/20/18 10/20/18 10/20/18 22:12 23:41 23:46 Temperature 98.6 F Pulse Rate 110 H 75 Respiratory 20 18 18 Rate Blood Pressure 129/97 O2 Sat by Pulse 97 Oximetry 10/20/18 23:56 Temperature Pulse Rate 78 Respiratory 16 Rate Blood Pressure O2 Sat by Pulse Oximetry - Reevaluation(s) Reevaluation #1: 10/21/18 00:21 After nebulized albuterol, Atrovent, and steroids, patient is feeling better, cough improved Medical Decision Making - Medical Decision Making 23-year-old female with 2 weeks of cough and dyspnea. Cough nonproductive. Given the duration of symptoms, chest x-rays obtained, this is negative for focal pneumonia or acute cardiopulmonary findings. Patient given albuterol, Atrovent, steroids, and reevaluation she is feeling better. She will be prescribed albuterol, and short course of steroids. She is also given azithromycin given the duration of the symptoms. She can follow up with her primary care physician, return with worsening or changing symptoms. Disposition Clinical Impression: Asthma Disposition: HOME SELF-CARE Condition: Good Instructions (If sedation given, give patient instructions): Asthma (ED) Prescriptions: Albuterol Inhaler [Ventolin Hfa Inhaler] 1 - 2 puff INHALATION Q4HR PRN #1 inhaler PRN Reason: Shortness Of Breath Azithromycin [Zithromax Z-pack] 0 mg PO DIRECTED #6 tab predniSONE 50 mg PO DAILY #5 tab Is patient prescribed a controlled substance at d/c from ED?: No Referrals: Home Stein MD [Primary Care Provider] - 1-2 days Time of Disposition: 00:22
--- NOTE | 2018-10-21 00:04 | XR ---
EXAM: XR Chest, 2 Views CLINICAL HISTORY: Cough. TECHNIQUE: Frontal and lateral views of the chest. COMPARISON: CXR dated 01/05/2017. FINDINGS: Lungs: No focal consolidation. No evidence of pulmonary edema. Pleural space: No pleural effusion. No pneumothorax. Heart: Normal cardiac silhouette size. Mediastinum: Unremarkable. Bones/joints: Unremarkable. IMPRESSION: No radiographic evidence of acute cardiopulmonary process.
[2018-10-21 00:39] VITALS: BP 132/80; PULSE 82; TEMP 98.3
== END 2018-10-21 00:39 | disposition home or self-care (01) ==
LOC: EC 22:08
DX: J45.909 Unspecified asthma, uncomplicated (principal); R11.10 Vomiting, unspecified; Z79.3 Long term (current) use of hormonal contraceptives; Z79.890 Hormone replacement therapy; Z88.0 Allergy status to penicillin; Z91.011 Allergy to milk products
CPT/HCPCS: 94640; 87502; 71046; 99285; 96372; J1100

== ENCOUNTER → 2019-02-14 | Outpatient (CLI) | payer BC ==
[2019-02-14 07:16] LABS: Basophils % (A) 1 %; Eosinophils # (A) 0.1 k/uL (0-0.7); Eosinophils % (A) 3 %; HCT 37.9 % (34.0-46.0); HGB 12.2 gm/dL (11.4-16.0); Lymphocytes # (A) 1.7 k/uL (1.0-4.8); Lymphocytes % (A) 34 %; MCH 30.1 pg (25.0-35.0); MCHC 32.2 g/dL (31.0-37.0); MCV 93.5 fL (80.0-100.0); Monocytes # (A) 0.4 k/uL (0-1.0); Monocytes % (A) 8 %; Neutrophils # (A) 2.5 k/uL (1.3-7.7); Neutrophils % (A) 52 %; Platelet Count 326 k/uL (150-450); RBC 4.05 m/uL (3.80-5.40); RDW 12.8 % (11.5-15.5); WBC 4.9 k/uL (3.8-10.6)
[2019-02-14 11:46] LABS: African American GFR (CKD) 146.8 (60.0-200.0); Albumin 4.3 g/dL (3.80-4.90); Albumin/Globulin Ratio 1.87 (1.60-3.17); Anion Gap 8.9 mmol/L (4.00-12.00); BUN/Creat Ratio 16.67 Ratio (12.00-20.00); Calcium 9.1 mg/dL (8.7-10.3); Carbon Dioxide 24.1 mmol/L (21.6-31.8); Globulin 2.3 g/dL (1.6-3.3); Potassium 4.1 mmol/L (3.5-5.5); Total Bilirubin 0.3 mg/dL (0.3-1.2); Total Protein 6.6 g/dL (6.2-8.2)
[2019-02-14 14:36] LABS: Hemoglobin A1C 5.3 % (4.0-6.0)
== END | disposition home or self-care (01) ==
LOC: LABWHC1 06:33
PROVIDERS: ATTEND Internal Medicine
DX: I95.1 Orthostatic hypotension (principal)
CPT/HCPCS: 36415; 80053; 82533; 83036; 84439; 84443; 85025; 85379

== ENCOUNTER → 2019-02-20 | Outpatient (CLI) | payer BC ==
--- NOTE | 2019-02-20 09:44 | XR ---
EXAMINATION TYPE: XR chest 2V DATE OF EXAM: 02/20/2019 COMPARISON: 01/05/2017 HISTORY: Cough TECHNIQUE: Frontal and lateral views of the chest are obtained. FINDINGS: There is no focal air space opacity, pleural effusion, or pneumothorax seen. The cardiac silhouette size is within normal limits. The osseous structures are intact. IMPRESSION: No acute cardiopulmonary process.
== END | disposition home or self-care (01) ==
LOC: RADXRMAIN 09:13
PROVIDERS: ATTEND Internal Medicine
DX: R05 Cough (principal)
CPT/HCPCS: 71046

== ENCOUNTER → 2020-01-23 | Outpatient (CLI) | payer BC ==
[2020-01-23 20:02] LABS: T4, Free (Free Thyroxine) 1.1 ng/dL (0.80-1.80)
== END | disposition home or self-care (01) ==
LOC: LABWHC1 12:33
PROVIDERS: ATTEND Internal Medicine
DX: E03.9 Hypothyroidism, unspecified (principal)
CPT/HCPCS: 36415; 84439; 84443

== ENCOUNTER → 2020-05-28 | Outpatient (CLI) | payer BC | END | disposition home or self-care (01) | LOC: LABWHC1 13:14 | PROVIDERS: ATTEND Internal Medicine | DX: Z20.828 Contact with and (suspected) exposure to other viral communicable diseases (principal) | CPT/HCPCS: U0003; C9803 ==

== ENCOUNTER → 2020-07-11 | Outpatient (CLI) | payer BC | END | disposition home or self-care (01) | LOC: LABWHC1 13:26 | PROVIDERS: ATTEND Internal Medicine | DX: Z20.828 Contact with and (suspected) exposure to other viral communicable diseases (principal) | CPT/HCPCS: U0003; C9803 ==

== ENCOUNTER → 2020-10-18 | Outpatient (CLI) | payer BC ==
--- NOTE | 2020-10-18 11:17 | US ---
EXAMINATION TYPE: US pelvic complete DATE OF EXAM: 10/18/2020 COMPARISON: CT, US CLINICAL HISTORY: R10.2 PELVIC PAIN. Pelvic pain intermittently especially during intercourse, sympto ms x 4 years. Takes Control; G0. Patient stated had pap smear 2 days ago. TECHNIQUE: TA US. Transabdominal sonographic images of the pelvis were acquired. Date of LMP: 10/09/2020 EXAM MEASUREMENTS: Uterus: 5.5 x 4.1 x 2.6 cm Endometrial Stripe: 0.4 cm Right Ovary: 2.7 x 1.7 x 1.0 cm Left Ovary: 2.0 x 1.1 x 0.7 cm 1. Uterus: Anteverted wnl 2. Endometrium: thickness wnl for Day 10 LMP 3. Right Ovary: wnl 4. Left Ovary: wnl Spectral, color and waveform doppler imaging shows good arterial and venous flow within the ovaries ; there is no evidence for ovarian torsion. 5. Bilateral Adnexa: wnl 6. Posterior cul-de-sac: wnl IMPRESSION: 1. Normal pelvic ultrasound
== END | disposition home or self-care (01) ==
LOC: RADUSWWP 07:01
PROVIDERS: ATTEND Obstetrics & Gynecology
DX: R10.2 Pelvic and perineal pain (principal)
CPT/HCPCS: 76856

== ENCOUNTER → 2021-01-21 | Outpatient (CLI) | payer BC ==
--- NOTE | 2021-01-21 13:57 | EST ---
EXERCISE STRESS AGE: 25 SEX: F HT: 5'4" WT: 154 lbs. PROTOCOL: Haseeb STAGE: 4 DURATION OF EXERCISE: 9:50 HEART RATE REST: 58 BLOOD PRESSURE REST: 119/59 MAXIMUM HEART RATE ACHIEVED: 175 MAXIMUM BLOOD PRESSURE: 167/69 85% MPHR: 164 100% MPHR: 193 METS: 11.5 INDICATIONS: Chest pain. CLINICAL INFORMATION: Baseline EKG shows sinus rhythm, normal axis, normal intervals. Patient exercised on Haseeb protocol for a total of 9 minutes and 50 seconds achieving 11 METS, 90% of predicted maximal heart rate without chest pain. At peak exercise there was 0.[address]- segment depression noted in the inferolateral leads. CONCLUSIONS: 1. Good exercise tolerance. 2. Nondiagnostic EKG changes with exercise. 3. The patient had chest discomfort at peak exercise. MMODL / IJN: [id number] /
== END | disposition home or self-care (01) ==
LOC: RADNMMAIN 08:37
PROVIDERS: ATTEND Internal Medicine
DX: R07.9 Chest pain, unspecified (principal)
CPT/HCPCS: 93017

== ENCOUNTER 2021-03-12 10:25 | Day surgery (SDC) | payer BC ==
[2021-03-11 08:45] VITALS: BMI 26.4
[~2021-03-12 10:25] MED LIST changes: +LIDOCAINE 1% (10MG/ML) FOR IV START INTRADERMA PRN; -LIDOCAINE 1% 20 ML VIAL (10MG/ML) FOR IV START INTRADERMA PRN
[2021-03-12 10:59] VITALS: RESP 18; TEMP 97.2
[2021-03-12] MEDS ORDERED: LIDOCAINE 1% INJ 10MG/ML (20 ML MDV) ONE (11:21)
[2021-03-12] MEDS ORDERED: PROPOFOL 10 MG/ML 20 ML VIAL IV ONE (11:21)
--- NOTE | 2021-03-12 11:30 | P.PCN ---
Date of Procedure: 03/12/21 Procedure(s) Performed: BRIEF HISTORY: Patient is a 25-year-old, pleasant, white female scheduled for an upper endoscopy as a part of evaluation of epigastric pain for the last several months duration. His been having the symptoms intermittently for the last several years and has been treated with the distal duct centimeters with no help. Recently was started on Pepcid 20 mg daily.. PROCEDURE PERFORMED: Esophagogastroduodenoscopy with biopsy. PREOPERATIVE DIAGNOSIS: Chronic epigastric pain. IV sedation per anesthesia. PROCEDURE: After informed consent was obtained, the patient was brought into the endoscopy unit. IV sedation was administered by Anesthesia under continuous monitoring. Initially the Olympus GIF-140 video endoscope was inserted into the mouth. Esophagus intubated without any difficulty. It was gradually advanced into the stomach and duodenum and carefully examined. The bulb and the second part of the duodenum appeared normal. Biopsies were done from the duodenum to rule out celiac disease The scope at this time was withdrawn to the stomach, adequately insufflated with air, and upon careful examination, mucosa of the antrum had mild mottling of the mucosa and biopsies were done from this area. The, body, cardia and the fundus appeared normal. The scope was then withdrawn into the esophagus. The GE junction was located at 39 cm from the incisors. The esophagus appeared normal. There were no erosions or ulcerations seen and the patient tolerated the procedure well. IMPRESSION: 1. Small sliding-type well hernia but no evidence of esophagitis or Story's esophagus. 2. Minimal antral gastritis. RECOMMENDATIONS: The findings of this examination were discussed with the patient as well as her family. She was advised to follow with the biopsy results. She will continue with Pepcid 20 mg twice daily and follow antireflux measures.
[2021-03-12 11:50] VITALS: BP 107/63; PULSE 74
== END 2021-03-12 12:08 | disposition home or self-care (01) ==
LOC: ORWHC2ENDO 10:25
PROVIDERS: ATTEND Internal Medicine Gastroenterology
DX: K29.50 Unspecified chronic gastritis without bleeding (principal); K21.00 Gastro-esophageal reflux disease with esophagitis, without bleeding; K44.9 Diaphragmatic hernia without obstruction or gangrene; J45.909 Unspecified asthma, uncomplicated; E07.9 Disorder of thyroid, unspecified; Z98.890 Other specified postprocedural states; Z79.899 Other long term (current) drug therapy; Z88.0 Allergy status to penicillin; Z91.011 Allergy to milk products
CPT/HCPCS: 81025; 88305; 43239; J2001; J2704

== ENCOUNTER → 2022-08-31 | Outpatient (CLI) | payer BC ==
--- NOTE | 2022-08-31 10:10 | NM ---
EXAMINATION TYPE: NM hepatobiliary w CCK DATE OF EXAM: 08/31/2022 COMPARISON: Prior HIDA January 28, 2017 HISTORY: Epigastric pain. Nausea and vomiting with reflux-like symptoms. TECHNIQUE: After the intravenous administration of 4.63 mCi Tc 99m Mebrofenin hepatobiliary scintigra phy is performed. Immediate images post injection. FINDINGS: There is satisfactory initial accumulation of tracer by the liver. The gallbladder is visualized wit hin 15 minutes. The small bowel activity is noted within 40 minutes. At one hour CCK was administer ed, patient was injected with 1.4 mcg of Kinevac, and gallbladder ejection fraction is calculated at 51 %, in the normal range. Therefore there is no scintigraphic evidence of cystic or common bile lindsey t obstruction to suggest acute cholecystitis or gallbladder dyskinesia. IMPRESSION: Exam is within normal limits. No significant change from prior.
== END | disposition home or self-care (01) ==
LOC: RADNMMAIN 06:57
PROVIDERS: ATTEND Internal Medicine
DX: R10.13 Epigastric pain (principal)
CPT/HCPCS: 78227; A9537; J2805

== ENCOUNTER → 2023-02-16 | Outpatient (CLI) | payer BC ==
--- NOTE | 2023-02-17 08:57 | CT ---
EXAMINATION TYPE: CT chest w con DATE OF EXAM: 02/16/2023 COMPARISON: Outside chest x-ray March 21, 2020 HISTORY: hx of hiatal hernia resulting in SOB CT DLP: 170.50 mGycm. Automated Exposure Control for Dose Reduction was Utilized. TECHNIQUE: CT scan of the thorax is performed following with IV Contrast, patient injected with 100 mL of Isovue 300. FINDINGS: LUNGS: The lungs are grossly clear, there is no concerning parenchymal mass or nodule identified. T here is no pleural effusion or pneumothorax seen. The tracheobronchial tree is patent. MEDIASTINUM: There are no greater than 1 cm hilar or mediastinal lymph nodes. No cardiomegaly or pe ricardial effusion is seen. OTHER: No additional significant abnormality is seen. IMPRESSION: Unremarkable study.
== END | disposition home or self-care (01) ==
LOC: RADCTMAIN 16:39
PROVIDERS: ATTEND Family Medicine
DX: R06.02 Shortness of breath (principal)
CPT/HCPCS: 71260; Q9967

== ENCOUNTER → 2023-03-11 | Outpatient (CLI) | payer BC ==
--- NOTE | 2023-03-11 10:27 | FL ---
ESOPHOGRAM. HISTORY: Dysphagia Esophagram was performed per the air contrast technique. The patient swallowed barium and effervesce nt crystals without difficulty or delay. Esophageal peristalsis and motility appear to be within normal limits. There is no evidence for filling defect, mass or diverticulum. There is a small reducible hiatal hernia noted. Subsequently single contrast cervical esophagram was performed which fails demonstrate evidence for m ass. Aspiration was noted. IMPRESSION: 1. Aspiration. 2. Small reducible hiatal hernia.
== END | disposition home or self-care (01) ==
LOC: RADUSWWP 09:47
DX: K44.9 Diaphragmatic hernia without obstruction or gangrene (principal)
CPT/HCPCS: 74220

== ENCOUNTER → 2023-03-17 | Outpatient (CLI) | payer BC ==
--- NOTE | 2023-03-17 09:53 | NM ---
EXAMINATION TYPE: NM gastric emptying study ciera DATE OF EXAM: 03/17/2023 COMPARISON: NONE CLINICAL INDICATION: Female, 27 years old with history of R11.2 NAUSEA AND VOMITING; epigastric pain, decreased appetite, heartburn, reflux, constipation, diarrhea, history of ulcers. Following administration of 1.9 mCi Tc 99m Sulfur Colloid with 1 cup of oatmeal projection images of the abdomen were obtained 10 minutes post ingestion. When possible, both anterior and posterior proje ction images were obtained to allow the calculation of the geometric mean activity. Clearance: 56 % Half-life: 78 min Gastroesophageal reflux: None IMPRESSION: Gastric emptying: Within normal limits. Gastroesophageal reflux: None
== END | disposition home or self-care (01) ==
LOC: RADNMMAIN 06:53
PROVIDERS: ATTEND Thoracic Surgery (Cardiothoracic Vascular Surgery)
DX: K21.9 Gastro-esophageal reflux disease without esophagitis (principal); K59.00 Constipation, unspecified; R11.2 Nausea with vomiting, unspecified; R63.0 Anorexia; R12 Heartburn; R19.7 Diarrhea, unspecified
CPT/HCPCS: 78264; A9541

== ENCOUNTER → 2023-06-03 | Outpatient (CLI) | payer BC ==
--- NOTE | 2023-06-04 10:04 | CT ---
EXAMINATION TYPE: CT Enterography CT DLP: 1432.8 mGycm, Automated exposure control for dose reduction was used. DATE OF EXAM: 06/03/2023 9:53 AM CLINICAL INDICATION:Female, 27 years old with history of R14.0 ABDOMINAL DISTENSION (GASEOUS); abdomi nal pain everytime pt eats, gaseous, h/o sliding hiatal hernia COMPARISON: None TECHNIQUE: ENTEROGRAPHY PROTOCOL; Multiple thin slice millimeter images were obtained through the abd omen and pelvis following the administration of IV contrast material and Volumen oral contrast. Beau nal reformats were also reconstructed. Contrast used:100 mL of Isovue 370 with IV Contrast, Oral contrast used: with Oral Contrast FINDINGS: LOWER CHEST: No significant findings. ABDOMEN LIVER: Unremarkable GALLBLADDER AND BILE DUCTS: Unremarkable. PANCREAS: Unremarkable. SPLEEN: Unremarkable. ADRENAL GLANDS: Unremarkable. KIDNEYS AND URETERS: No evidence of hydronephrosis or renal calculus. The ureters are unremarkable. PELVIS BLADDER: Unremarkable REPRODUCTIVE: Unremarkable. ABDOMEN & PELVIS STOMACH AND BOWEL: No evidence of bowel obstruction. The appendix demonstrates a appendicolith measur ing 7 mm. The appendix is within normal limits. No evidence for bowel wall thickening or submucosal h yperenhancement. No evidence for abscess or evidence for fistula. The large and small bowel is within normal limits. PERITONEUM/RETROPERITONEUM: No evidence of pneumoperitoneum or free fluid. VASCULATURE: No evidence of aortic aneurysm. MUSCULOSKELETAL: No acute osseous abnormalities LYMPH NODES: No gross evidence for lymphadenopathy. SOFT TISSUE/ABDOMINAL WALL: Unremarkable IMPRESSION 1. No evidence for active Crohn's disease. No acute abdominal process. 2. Appendix is within normal limits with an appendicolith in the tip of the appendix..
== END | disposition home or self-care (01) ==
LOC: RADCTMAIN 08:20
PROVIDERS: ATTEND Surgery
DX: R14.0 Abdominal distension (gaseous) (principal)
CPT/HCPCS: 74178; Q9967

== ENCOUNTER 2023-07-27 10:19 | Day surgery (SDC) | payer BC ==
[~2023-07-27 10:19] MED LIST changes: -LIDOCAINE 1% (10MG/ML) FOR IV START INTRADERMA PRN
[2023-07-27 11:03] VITALS: TEMP 97.4
[2023-07-27] MEDS ORDERED: LIDOCAINE 1% INJ 10MG/ML (20 ML MDV) ONE (11:22)
[2023-07-27] MEDS ORDERED: PROPOFOL 10 MG/ML 20 ML VIAL IV ONE (11:22)
--- NOTE | 2023-07-27 11:27 | P.GSHP ---
History of Present Illness H&P Date: 07/27/23 Chief Complaint: Change in bowel habits 27-year-old female here for colonoscopy. Patient with chronic abdominal discomforts. Patient has intermittent diarrhea and constipation. Abdominal cramps. Pain after eating at times. Patient has had a rather extensive workup. Father with history of colon polyps requiring resection in the past. No rectal bleeding. No family history of colon cancer or inflammatory bowel disease. Past Medical History Past Medical History: Asthma, GERD/Reflux, Thyroid Disorder Additional Past Medical History / Comment(s): upper abdominal pain, hiatal hernia History of Any Multi-Drug Resistant Organisms: None Reported Past Surgical History: Bladder Surgery Past Anesthesia/Blood Transfusion Reactions: No Reported Reaction Smoking Status: Never smoker - Past Family History Mother Family Medical History: Hypertension Father Family Medical History: No Reported History Additional Family Medical History / Comment(s): CHRONIC ABDOMINAL PAIN ISSUES...UNRESOLVED. Medications and Allergies Home Medications Medication Instructions Recorded Confirmed Type Levothyroxine Sodium 50 mcg PO QAM 03/11/17 07/27/23 History norgestimate-ethinyl estradioL 1 tab PO DAILY 03/03/18 07/27/23 History [Nwn-Bn-Qeonpgxf Tablet] Albuterol Inhaler [Ventolin Hfa 1 - 2 puff INHALATION RT-Q6H PRN 10/20/18 07/27/23 History Inhaler] Allergies Allergy/AdvReac Type Severity Reaction Status Date / Time Penicillins Allergy Rash/Hives Verified 07/27/23 10:46 Milk Containing Products AdvReac Abdominal Verified 07/27/23 10:46 (Dairy) Pain [Dairy] Surgical - Exam Vital Signs Temp Pulse Resp BP Pulse Ox 97.4 F L 68 16 126/57 98 07/27/23 10:50 07/27/23 10:50 07/27/23 10:50 07/27/23 10:50 07/27/23 10:50 Physical exam: General: Well-developed, well-nourished HEENT: Normocephalic, sclerae nonicteric Abdomen: Nontender, nondistended Extremities: No edema Neuro: Alert and oriented Assessment and Plan (1) Change in bowel habits Narrative/Plan: Will proceed with colonoscopy at this time Current Visit: Yes Status: Acute Code(s): R19.4 - CHANGE IN BOWEL HABIT S NOMED Code(s): 26901609
--- NOTE | 2023-07-27 11:40 | P.PCN ---
Date of Procedure: 07/27/23 Procedure(s) Performed: PREOPERATIVE DIAGNOSIS: change in bowel habits POSTOPERATIVE DIAGNOSIS: normal colon PROCEDURE: Colonoscopy with biopsy ANESTHESIA: MAC SURGEON: Tomi Daniel M.D. SPECIMENS: random colon ENDOSCOPIC PROCEDURE: The patient was placed on the endoscopy table in the left decubitus position. The Olympus colonoscope was inserted into the anus and passed under direct visualization to the base of the cecum. The appendiceal orifice was visualized. From that point the scope was slowly withdrawn inspecting all surfaces carefully. There were no neoplastic inflammatory or polypoid lesions throughout the cecum, ascending, transverse, descending, sigmoid and rectum. There was no visible diverticulosis noted. Random colonic biopsies were taken to evaluate for microscopic colitis. Digital rectal examination was normal. The patient was taken to the recovery room in stable c ondition per anesthesia guidelines. RECOMMENDATIONS: await biopsy results. Continue workup of abdominal pain
[2023-07-27 11:52] VITALS: RESP 18
[2023-07-27 12:16] VITALS: BP 120/76; PULSE 70
== END 2023-07-27 12:28 | disposition home or self-care (01) ==
LOC: ORWHC2ENDO 10:19
PROVIDERS: ATTEND Surgery
DX: R19.4 Change in bowel habit (principal); J45.909 Unspecified asthma, uncomplicated; K21.9 Gastro-esophageal reflux disease without esophagitis; E07.9 Disorder of thyroid, unspecified; Z79.890 Hormone replacement therapy; Z79.51 Long term (current) use of inhaled steroids; Z88.0 Allergy status to penicillin; Z91.011 Allergy to milk products; Z79.899 Other long term (current) drug therapy
CPT/HCPCS: 81025; 88305; 45380; J2001; J2704

== ENCOUNTER → 2023-09-08 | Outpatient (CLI) | payer BC ==
[2023-09-09 00:01] LABS: Cryptosporidium Antigen Negative (Negative)
== END | disposition home or self-care (01) ==
LOC: LABWHC1 12:10
PROVIDERS: ATTEND Family Medicine
DX: L70.0 Acne vulgaris (principal)
CPT/HCPCS: 83993; 87045; 87046; 87328; 87329